=== PATIENT | female | born 1945 | race Caucasian/White ===

== ENCOUNTER 2016-09-20 12:26 | Emergency (ER) | payer MEDICARE, OTHER ==
[~2016-09-20] VITALS: Ht 157.5 cm; Wt 61.9 kg
[2016-09-20 12:39] VITALS: BP 139/85; PULSE 61; RESP 18; TEMP 98.2; O2SAT 97
[2016-09-20 12:57] LABS: GLUCOSE,URINE NEG (NEG); KETONE, URINE NEG (NEG); NITRITE,URINE NEG (NEG)
[2016-09-20 13:00] LABS: BLOOD, URINE MOD (NEG)
[2016-09-20 13:02] LABS: METHOD OF COLLECTION CLEAN CATCH; URINE COLOR YELLOW (YELLW/STRAW)
[2016-09-20 13:04] LABS: BACTERIA, URINE FEW /hpf; COMMENT (UR) CULTURE INDICATED; CULTURE IF INDICATED CULTURE INDICATED; SQUAMOUS EPITHELIAL CELL URINE 0-5 /hpf (0-5); WBC, URINE 100-200 /hpf (0-5)
--- NOTE | 2016-09-20 13:24 | PD ---
HPI Chief Complaint: Complaint Time Seen by Provider: 13:20 Travel History International Travel<30 days: No Contact w/Intl Traveler<30days: No Traveled to known affect area: No History of Present Illness HPI 70-year-old female presents to the ED for evaluation of 3 day history of increased urinary urgency, dysuria, hematuria. Onset gradual. Patient denies fever, chills, abdominal pain, nausea, vomiting, back pain. She attempted to reach her PCP but was denied empiric antibiotic treatment. Endorses allergy to penicillin. PFSH Past Medical History Hx Anticoagulant Therapy: Yes (ASA) Cardiovascular Problems: Yes (AAA) Social History Tobacco Use: No Allergies-Medications (Allergen,Severity, Reaction): Coded Allergies: Penicillin (Verified Allergy, Intermediate, RASH, 09/20/16) Reported Meds & Prescriptions Reported Meds & Active Scripts Active Macrobid (Nitrofurantoin Monoh/Nitrofur Macro) 100 Mg Cap 100 Mg PO BID 5 Days Reported Calcium 500 + D (Calcium Carbonate-Vitamin D) 500-125 Mg-Unit Tab Unknown Dose PO DAILY Alendronate (Alendronate Sodium) 70 Mg Tab 70 Mg PO Q7D D 2000 (Cholecalciferol) 2,000 Unit Tab 1.25 Mg PO WEEKLY Atenolol 25 Mg Tab 25 Mg PO DAILY Aspirin 81 Mg Tabdr 81 Mg PO DAILY Atorvastatin (Atorvastatin Calcium) 10 Mg Tab 10 Mg PO EVERY OTHER DAY Valsartan 80 Mg Tab 80 Mg PO DAILY Review of Systems Except as stated in HPI: all other systems reviewed are Neg Physical Exam Narrative GENERAL: Well-nourished, well-developed well-appearing white female in no acute distress. SKIN: Warm and dry. HEAD: Normocephalic. EYES: No scleral icterus. No injection or drainage. NECK: Supple, trachea midline. No JVD or lymphadenopathy. CARDIOVASCULAR: Regular rate and rhythm without murmurs, gallops, or rubs. RESPIRATORY: Breath sounds clear and equal bilaterally. No accessory muscle use. GASTROINTESTINAL: Abdomen soft, non-tender, nondistended. No suprapubic tenderness. MUSCULOSKELETAL: No cyanosis, or edema. Patient is able to moves extremities spontaneously. BACK: Nontender without obvious deformity. No CVA tenderness. Data Data Last Documented VS Vital Signs Date Time Temp Pulse Resp B/P Pulse Ox O2 Delivery O2 Flow Rate FiO2 09/20/16 12:39 98.2 61 18 139/85 97 Orders Urinalysis - C+S If Indicated (09/20/16 12:43) Urine Culture (09/20/16 12:47) Labs Laboratory Tests Test 09/20/16 12:47 Urine Collection Type CLEAN CATCH Urine Color YELLOW Urine Turbidity SLIGHT Urine pH 6.0 Urine Specific [place] 1.016 Urine Protein 30 mg/dL Urine Glucose (UA) NEG mg/dL Urine Ketones NEG mg/dL Urine Occult Blood MOD Urine Nitrite NEG Urine Bilirubin NEG Urine Leukocyte Esterase MOD Urine RBC 50-99 /hpf Urine WBC 100-200 /hpf Urine WBC Clumps FEW Urine Squamous Epithelial 0-5 /hpf Cells Urine Amorphous Sediment FEW Urine Bacteria FEW /hpf Microscopic Urinalysis Comment CULTURE INDICATED Urine Collection Time 1247 MDM Medical Decision Making Medical Screen Exam Complete: Yes Emergency Medical Condition: Yes Differential Diagnosis Cystitis versus pyelonephritis versus nephroureterolithiasis versus other Narrative Course 70-year-old female presents to the ED for evaluation of 3 day history of increased urinary urgency, dysuria, hematuria. Onset gradual. Patient denies fever, chills, abdominal pain, nausea, vomiting, back pain. She attempted to reach her PCP but was denied empiric antibiotic treatment. Vitals reviewed. Physical exam reveals a well-appearing white female in no acute distress. No tenderness to palpation of the abdomen, suprapubic region, CVA tenderness. UA reveals moderate occult blood, moderate leukocyte esterase, 50-100 RBCs, 100- 200 WBCs, few clumps, few bacteria. Culture pending. Was prescribed Macrobid her milligrams twice a day 5 days. She is instructed take all medication as prescribed, given the symptoms resolved during the course of treatment, OTC meds as needed for pain, follow up with a primary care provider. She indicated understanding of instructions. She is stable and discharged home. Diagnosis Primary Impression: Acute cystitis with hematuria Referrals: Primary Care Physician Patient Instructions: General Instructions, Urinary Tract Infection in Women ( ED) Additional Instructions: Rest, hydrate. Take all antibiotics as prescribed, even if your symptoms resolved during the course of treatment. An [id number] product called AZO can be used for continuing pain with urination. Ibuprofen as directed on label, as needed for pain or fevers. Follow-up with the primary care provider. Return to the ED for any urgent or emergent medical condition. Med/Other Pt SpecificInfo: Prescription(s) given Scripts Nitrofurantoin Monohydrate Macrocrystals (Macrobid)100 Mg [id number] Mg PO BID 5 Days Ref 0 Prov:Luis Felipe Poe MD 09/20/16 Disposition: 01 DISCHARGE HOME Condition: Stable Katiuska Pickens Sep 20, 2016 13:24
[2016-09-20] MEDS ORDERED: MACR100C2 PO (13:25)
[2016-09-20] MEDS ORDERED: ASPI1TAB69 PO (13:32)
[2016-09-20] MEDS ORDERED: ALEN1TAB48 PO (13:32)
[2016-09-20] MEDS ORDERED: ATOR10TA15 PO (13:32)
[2016-09-20] MEDS ORDERED: CALCTAB23 PO (13:32)
[2016-09-20] MEDS ORDERED: CHOL1TAB35 PO (13:32)
[2016-09-20] MEDS ORDERED: VALS1TAB64 PO (13:32)
[2016-09-20] MEDS ORDERED: ATEN25TA PO (13:32)
== END 2016-09-20 13:38 | disposition home or self-care (01) ==
LOC: PHED 12:26 → PHEFT 13:38
DX: N30.01 Acute cystitis with hematuria (principal)
CPT/HCPCS: 81001; 87086; 99283